=== PATIENT | female | born 1955 | race African-American/Black ===

== ENCOUNTER 2018-01-14 14:21 | Observation (INO) | payer OTHER ==
[~2018-01-14] VITALS: Ht 154.9 cm; Wt 107.2 kg
[2018-01-14 14:24] VITALS: Ht 154.9 cm; Wt 107.2 kg
[2018-01-14] MEDS ORDERED: ZESTRIL20 MG PO (14:41)
[2018-01-14 14:59] LABS: CALCIUM 9.7 mg/dL (8.5-10.1); POTASSIUM SERUM 3.9 mmol/L (3.5-5.1)
[2018-01-14 15:04] LABS: ALBUMIN 3.6 g/dL (3.4-5.0); BILIRUBIN TOTAL 0.5 mg/dL (0.20-1.00); TOTAL PROTEIN, SERUM 7.8 g/dL (6.4-8.2)
[2018-01-14 15:09] LABS: BASOPHIL % 0.6 % (0-2); PLATELET COUNT 234 x10^3mcL (130-400); RED CELL DISTRIBUTION WIDTH 14.5 % (11.5-14.5)
[2018-01-14 17:15] VITALS: BP 191/81
[2018-01-14 17:18] LABS: MAGNESIUM 1.9 mg/dL (1.8-2.4); PHOSPHOROUS 2.5 mg/dL (2.5-4.9)
[2018-01-14 17:19] LABS: CHOLESTEROL/HDL RATIO 2.4
[2018-01-14 17:22] LABS: T3 TOTAL 0.94 ng/mL
[2018-01-14 17:27] LABS: FREE T4 1.16 ng/dL (0.76-1.46); FREE THYROXINE INDEX 3.3 ug/dL (1.4-4.5); T4(THYROXINE) 9.6 ug/dL (4.7-13.3)
[2018-01-14 17:57] VITALS: BP 151/71
[2018-01-14 20:46] VITALS: BP 116/60
[2018-01-14 21:40] LABS: microscopic required? NO
[2018-01-14 21:49] LABS: UA SPECIFIC GRAVITY 1.015 (1.005-1.035); urine erythrocyte NEGATIVE (NEGATIVE)
[2018-01-14 21:58] LABS: AMPHETAMINE QUAL UR NONE DETECTED (NEG <=1000)
[2018-01-15 05:41] VITALS: BP 135/70
[2018-01-15 06:35] LABS: BASOPHIL % 0.6 % (0-2); PLATELET COUNT 187 x10^3mcL (130-400); RED CELL DISTRIBUTION WIDTH 14.4 % (11.5-14.5)
[2018-01-15 07:45] LABS: CALCIUM 9.3 mg/dL (8.5-10.1); CARBON DIOXIDE 21.7 mmol/L (21-32); CREATININE SERUM 1.1 mg/dL (0.6-1.0); MAGNESIUM 2.2 mg/dL (1.8-2.4); PHOSPHOROUS 4.3 mg/dL (2.5-4.9); POTASSIUM SERUM 3.9 mmol/L (3.5-5.1)
[2018-01-15 09:15] VITALS: BP 136/65
[2018-01-15 09:46] VITALS: BP 136/65
[2018-01-15] MEDS ORDERED: NOR10 PO (11:27)
[2018-01-15 12:18] VITALS: BP 159/81
== END 2018-01-15 13:54 | disposition home or self-care (01) | DRG 305 ==
LOC: ED 14:21 → DU 16:06
PROVIDERS: Emergency Medicine; Family Medicine
DX: I16.0 Hypertensive urgency (principal); R07.9 Chest pain, unspecified; R42 Dizziness and giddiness; Z68.37 Body mass index [BMI] 37.0-37.9, adult
CPT/HCPCS: 83880; 84439; G0378; J0360; J3010; J7030; J8597; Q0092; Q0162